=== PATIENT | male | born 1995 | race Caucasian/White ===

== ENCOUNTER 2019-09-19 00:32 | Emergency (ER) | payer OTHER, SELFPAY ==
[2019-09-19 00:33] VITALS: BP 133/89; PULSE 64; RESP 16; TEMP 36.7; O2SAT 98; BMI 27.1
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
[2019-09-19 01:17] VITALS: BP 127/83; PULSE 61; RESP 16; TEMP 36.7; O2SAT 98
--- NOTE | 2019-09-19 01:20 | PC.NURSE ---
pt refused Tetanus shot
== END 2019-09-19 01:19 | disposition home or self-care (01) ==
PROVIDERS: Emergency Provider Emergency Medicine
DX: S09.93XA Unspecified injury of face, initial encounter (principal); S01.511A Laceration without foreign body of lip, initial encounter; W22.8XXA Striking against or struck by other objects, initial encounter; Y92.89 Other specified places as the place of occurrence of the external cause; K02.9 Dental caries, unspecified; F17.210 Nicotine dependence, cigarettes, uncomplicated
CPT/HCPCS: 99281

== ENCOUNTER 2020-03-30 07:22 | Emergency (ER) | payer OTHER, SELFPAY ==
[2020-03-30 07:22] VITALS: BP 162/91; PULSE 79; RESP 18; TEMP 37.1; O2SAT 98; BMI 25.7
--- NOTE | 2020-03-30 08:02 | HMH.EDGENADL ---
ED Disposition Clinical Impression: Dentalgia Disposition: Home, Self-Care Condition on Discharge: Good Additional Instructions: Take ibuprofen with food for pain. Take antibiotic as prescribed. Follow-up with dentistry next week. Return if new or worsening symptoms. Prescriptions: Amoxicillin/Potassium Clav [Augmentin 875-125 Tablet] 1 tab PO Q12H #14 tab Prescription Printed Referrals: PCP,No [Primary Care Provider] - - Critical Care Critical Care Time: No Attestation: On 03/30/20, the high probability of a clinically significant, sudden or life threatening deterioration of the following system(s) required my full and direct attention, intervention and personal management. The time I documented below is in addition to time spent performing reported procedures but includes the following listed in this critical care notation. Medical Decision Making - Medical Records Medical records reviewed: Yes: I reviewed the patient's medical records. - Ho Inquiry Pt receiving controlled substance: No Vital Signs: 03/30/20 07:22 Temperature 98.8 F Temperature Source Oral Pulse Rate [Radial] 79 Respiratory Rate 18 Blood Pressure [Right Arm] 162/91 H Blood Pressure Mean [Right Arm] 114 Blood Pressure Position [Right Arm] Sitting 02 Sat by Pulse Oximetry 98 Oxygen Delivery Method Room Air Orders (Tests/Meds): ED MEDICATIONS Discontinued Medications Generic Name Dose Route Start Last Admin Trade Name Freq PRN Reason Stop Dose Admin Ketorolac Tromethamine 30 mg 03/30/20 07:49 Ketorolac 30mg/Ml Vial IM 03/30/20 07:50 ONCE ONE Medical Decision Narrative: Patient is a 24-year-old male presented with dentalgia. Patient has dental caries. No signs of deeper space infection or any tooth elevation/fluctuance at the base. No drainable abscess. Patient be treated with Augmentin for suspected dental abscess. No allergies to medicines. He has resolution of pain and instructed to continue taking ibuprofen. He does have a dentist he can follow-up with next week. He will immediate return if any difficulty tolerating p.o. fluids, fever/chills, worsening pain. He is able to drink prior to discharge here in the ER. Also urged him to cut back on his smoking and to quit entirely. Assessment: Dentalgia, tooth #2 Tobacco cessation counseling given, less than 8 minutes Disposition: Home with antibiotics with dental follow-up follow-up General Adult HPI - General Chief complaint: PAIN Stated complaint: dental pain Time Seen by Provider: 03/30/20 08:02 Mode of Arrival: Ambulatory Limitations: No Limitations Description of Symptoms (Recalled from ER Triage Doc. by RN): to ed per pvt car with c/o rt upper dental pain woke him up this am approx 5:30. denies nausea, vomiting, fever, chills. cpta tylenol advil at 5:30 - History of Present Illness HPI narrative: Patient 24-year-old male history of tobacco abuse presenting with dental pain. Last night patient had a sharp, constant pain to his right premolar. Still able to tolerate fluids. No fever/chills. He did take an Advil with some relief. This morning he woke up and the pain was worse so he came to the ER but states when he got here the pain is subsided. No other complaints. - Related Data Previous Rx's Medication Instructions Recorded Amoxicillin/Potassium Clav 1 tab PO Q12H #14 tab 03/30/20 [Augmentin 875-125 Tablet] Allergies Allergy/AdvReac Type Severity Reaction Status Date / Time No Known Allergies Allergy Verified 06/29/17 12:18 [facility] History - Hepatitis A Screen Drug use history?: No High risk sexual behaviors?: No History of sexually transmitted infection?: No Currently employed?: No Childcare worker?: No Do you have indoor plumbing?: Yes Do you have electricity?: Yes Attestation statement:: This patient has been screened for Hepatitis A risk factors. Medical History: Denies:: Cancer, D
[2020-03-30 08:18] VITALS: BP 120/61; PULSE 63; RESP 16; TEMP 36.6; O2SAT 98
== END 2020-03-30 08:19 | disposition home or self-care (01) ==
PROVIDERS: Emergency Provider Emergency Medicine
DX: K08.89 Other specified disorders of teeth and supporting structures (principal); K02.9 Dental caries, unspecified; F17.210 Nicotine dependence, cigarettes, uncomplicated
CPT/HCPCS: 99281

== ENCOUNTER 2020-12-05 11:17 | Emergency (ER) | payer SELFPAY ==
[2020-12-05 11:32] VITALS: BP 136/83; PULSE 79; RESP 20; TEMP 36.8; O2SAT 99; BMI 31.1
--- NOTE | 2020-12-05 11:49 | HMH.EDUTC ---
[facility] [place] Disposition Clinical Impression: Bronchitis Sinusitis Qualifiers: Sinusitis location: unspecified location Chronicity: acute Recurrence: non-recurrent Qualified Code(s): J01.90 - Acute sinusitis, unspecified Disposition: Home, Self-Care Condition on Discharge: Good Instructions: DI for Sinusitis, DI for Acute Bronchitis Additional Instructions: Drink plenty of fluids. Take tylenol or ibuprofen for pain or fever. Take the medications as directed. Follow up with your regular doctor. GO TO THE ER FOR ANY WORSENING SYMPTOMS Prescriptions: Amoxicillin/Potassium Clav [Augmentin 875-125 Tablet] 1 tab PO Q12H 10 Days #20 tab [facility]: [facility] predniSONE [Prednisone 20mg Tab] 20 mg PO BID 5 Days #10 tab Transmission Status: [facility] Benzonatate [Tessalon Perle 100mg Cap] 100 mg PO TIDP PRN #30 cap PRN Reason: Cough Transmission Status: Received by [facility] Referrals: Provider,Referral, [Primary Care Provider] - Forms: Work/School Release Time of Disposition: 12:09 Medical Decision Making - Medical Records Medical records reviewed: No: I reviewed the patient's medical records. - Ho Inquiry Pt receiving controlled substance: No Vital Signs: 12/05/20 11:32 12/05/20 12:18 Temperature 98.2 F 98 F Temperature Source Oral Oral Pulse Rate 74 Pulse Rate [Left] 79 Respiratory Rate 20 16 Blood Pressure 132/74 Blood Pressure [Right Arm] 136/83 Blood Pressure Mean [Right Arm] 100 Blood Pressure Source [Right Arm] Automatic Cuff Blood Pressure Position Sitting Blood Pressure Position [Right Arm] Sitting 02 Sat by Pulse Oximetry 99 Oxygen Delivery Method Room Air Room Air [facility] [place] HPI - General Stated complaint: possible upper resp infection Time Seen by Provider: 12/05/20 12:00 Mode of Arrival: Ambulatory Source of Information: Patient Limitations: No Limitations Description of Symptoms (Recalled from Triage Doc. by RN): Pt states he has been congested and has been coughing up green stuff for 2 days. Pt states he will not be getting a nasal swab. Pt glo sob or chest pain. HEENT Symptoms (Recalled from RN notes): No Resp Symptoms (Recalled from RN notes): Yes (cough) Skin Symptoms (Recalled from RN notes): No MS Symptoms (Recalled from RN notes): No Functional Status (Recalled from RN notes): n/a - History of Present Illness Provider Complaint: He states that for the past 2 weeks he has had sinus congestion and sinus drainage. He usually gets a sinus infection this time every year. He denies any fever or chills. He has not been vaccinated against covid-19. He refuses a covid-19 test today. - Related Data Previous Rx's Medication Instructions Recorded Amoxicillin/Potassium Clav 1 tab PO Q12H #14 tab 03/30/20 [Augmentin 875-125 Tablet] Amoxicillin/Potassium Clav 1 tab PO Q12H 10 Days #20 tab 12/05/20 [Augmentin 875-125 Tablet] Benzonatate [Tessalon Perle 100mg 100 mg PO TIDP PRN #30 cap 12/05/20 Cap] predniSONE [Prednisone 20mg 20 mg PO BID 5 Days #10 tab 12/05/20 Tab] Allergies Allergy/AdvReac Type Severity Reaction Status Date / Time No Known Allergies Allergy Verified 06/29/17 12:18 - Worker's Comp Is this a Worker's Comp case?: No [facility] History - Hepatitis A Screen Drug use history?: No High risk sexual behaviors?: No History of sexually transmitted infection?: No Currently employed?: No Childcare worker?: No Do you have indoor plumbing?: Yes Do you have electricity?: Yes Attestation statement:: This patient has been screened for Hepatitis A risk factors. I have reviewed the patient's past medical history: Yes Medical History: Denies:: Cancer, Diabetes Mellitus Type 1, Diabetes Mellitus Type 2, MRSA Other Medical History: Reports: Other (vsd) Other Surgeries: Yes: No Previous Surgery Amputation: No - Social History S
[2020-12-05 12:18] VITALS: BP 132/74; PULSE 74; RESP 16; TEMP 36.6; O2SAT 98
== END 2020-12-05 12:19 | disposition home or self-care (01) ==
PROVIDERS: Emergency Provider Nurse Practitioner Family
DX: J20.9 Acute bronchitis, unspecified (principal); J01.90 Acute sinusitis, unspecified; F17.210 Nicotine dependence, cigarettes, uncomplicated
CPT/HCPCS: 99202; G0463

== ENCOUNTER 2022-05-13 07:00 | Emergency (ER) | payer SELFPAY ==
[2022-05-13 07:00] VITALS: BP 126/85; PULSE 68; RESP 18; TEMP 36.5; O2SAT 100; BMI 31.1
[2022-05-13 07:07] VITALS: PULSE 65; RESP 17; O2SAT 99
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
--- NOTE | 2022-05-13 07:19 | PC.NURSE ---
DR ARTIS AT BEDSIDE
--- NOTE | 2022-05-13 07:19 | PC.NURSE ---
FIDEL DE SANTIAGO at
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
--- NOTE | 2022-05-13 07:28 | PC.NURSE ---
PT TO XR
--- NOTE | 2022-05-13 07:33 | PC.NURSE ---
PT RETURNED FROM XR
--- NOTE | 2022-05-13 07:49 | PC.NURSE ---
DR ARTIS AT BEDSIDE TO UPDATE PT
[2022-05-13 07:55] VITALS: BP 128/85; PULSE 65; RESP 18; TEMP 36.7; O2SAT 98
== END 2022-05-13 07:55 | disposition home or self-care (01) ==
PROVIDERS: Emergency Provider Emergency Medicine
DX: S20.211A Contusion of right front wall of thorax, initial encounter (principal); V48.2XXA Person on outside of car injured in noncollision transport accident in nontraffic accident, initial encounter; Z87.891 Personal history of nicotine dependence
CPT/HCPCS: 71101; 99283

== ENCOUNTER 2022-06-23 11:38 | Emergency (ER) | payer SELFPAY ==
[2022-06-23 11:45] VITALS: BP 122/77; PULSE 71; RESP 20; TEMP 36.8; O2SAT 97; BMI 31.8
--- NOTE | 2022-06-23 11:54 | EXP.UTC ---
Discharge Plan Disposition Patient Disposition: Home, Self-Care Condition: Good Prescriptions Prescriptions: New ibuprofen [IBU] 800 mg tablet 800 mg PO Q8HP PRN (Reason: Moderate Pain) Qty: 30 0RF Referrals Follow up/Referrals: Provider,Referral, [Primary Care Provider] - See instructions Activity Restrictions/Add. Instructions Additional Instructions/Restrictions: Rest the extremity, Elevate the extremity as tolerated while you are resting. Take ibuprofen for pain. I sent in a prescription to your pharmacy. Follow up with Dr. López (orthopedics). Sometimes there can be fractures that don't show up well on the first set of x-rays. So, you should follow up if you continue to have symptoms. I put in a referral but you need to call his office and schedule an appointment. Follow up with your regular doctor. GO TO THE ER FOR ANY WORSENING SYMPTOMS Clinical Impressions Clinical Impression: Right wrist tendinitis Instructions Patient Instructions: DI for Wrist Pain Discharge ED Provider: Go Aquino [facility] General Stated complaint: R wrist pain Time Seen by Provider: 06/23/22 11:54 History of Present Illness Provider Complaint: He states that for the past 2 weeks he has had right wrist pain with movement. He denies any known injury. He has been working very hard with his hands recently and thinks he may have a tendonitis. Related Data Previous Rx's Medication Instructions Recorded ibuprofen 800 mg tablet (IBU) 800 mg PO Q8HP PRN Moderate Pain 06/23/22 #30 tabs Allergies Allergy/AdvReac Type Severity Reaction Status Date / Time No Known Allergies Allergy Verified 06/23/22 12:02 [facility] Disclaimer: The information contained in this section may have been updated after the patient was seen, as this information can be updated by other users. Social History Smoking Status: Former smoker alcohol intake: never substance use type: denies use current occupational status: employed Travel in the last 8 weeks: None household members: family housing: house ROS Obtained: Yes All systems reviewed & no additional complaints except as documented Constitutional Constitutional: Denies chills and Denies fever(s) Eyes Eyes: Denies eye discharge ENT Ears, Nose, Mouth, and Throat: Denies dizziness, Denies otalgia and Denies sore throat Cardiovascular Cardiovascular: Denies chest pain Respiratory Respiratory: Denies shortness of breath, Denies chest congestion, Denies cough, Denies stridor and Denies wheezing Gastrointestinal Gastrointestingal: Denies nausea or vomiting Musculoskeletal Musculoskeletal: Reports as per HPI Integumentary/Breasts Skin/Breast: Denies rash Neurologic Neurologic: Denies dizziness and Denies paresthesias Allergic/Immunologic Allergic/Immunologic: Denies wheezing Physical Exam General General appearance: alert and in no apparent distress Head Head exam: atraumatic, normocephalic and normal inspection Eye Eye exam: Present normal appearance, PERRL and EOMI ENT ENT exam: Present normal exam, normal oropharynx, mucous membranes moist, TM's normal bilaterally and normal external ear exam Neck Neck exam: Present normal inspection, full ROM and trachea midline; Absent meningismus or lymphadenopathy Chest Chest inspection: Present normal inspection and symmetric chest wall rise; Absent tenderness Respiratory Respiratory exam: Present normal lung sounds bilaterally; Absent respiratory distress Cardiovascular Cardiovascular exam: Present regular rate and normal rhythm; Absent JVD Abdominal Exam Abdominal exam: Present soft and normal bowel sounds; Absent distention, tenderness or guarding Extremities Exam Extremities exam: Present normal capillary refill; Absent calf tenderness Expanded Upper Extremity Exam Right: Elbow exam: Present normal inspection and full ROM; Absent tenderness
--- NOTE | 2022-06-23 11:57 | XR_ITS ---
FINAL REPORT CLINICAL HISTORY: pain FINDINGS: RIGHT WRIST Three views demonstrate no acute fracture or dislocation. The visualized joint spaces are normally aligned. The joint spaces are intact. The soft tissues are unremarkable. IMPRESSION: No acute bony abnormality. Reviewed, Interpreted and Dictated by David Casiano III, MD Transcribed by Yanely Lai Authenticated and [facility]
--- NOTE | 2022-06-23 11:57 | XR_ITS ---
FINAL REPORT CLINICAL HISTORY: pain FINDINGS: RIGHT HAND Three views demonstrate no acute fracture. There is no dislocation. The visualized joint spaces are normally aligned. The joint spaces are preserved. The soft tissues are unremarkable. IMPRESSION: No acute bony abnormality. Reviewed, Interpreted and Dictated by David Casiano III, MD Transcribed by Yanely Lai Authenticated and [facility]
[2022-06-23 13:05] VITALS: BP 122/77; PULSE 71; RESP 20; TEMP 36.8; O2SAT 97
== END 2022-06-23 13:05 | disposition home or self-care (01) ==
PROVIDERS: Emergency Provider Nurse Practitioner Family
DX: M67.833 Other specified disorders of tendon, right wrist (principal); X58.XXXA Exposure to other specified factors, initial encounter; Z87.891 Personal history of nicotine dependence
CPT/HCPCS: 73110; 73130; 99212; 99214; G0463

== ENCOUNTER 2022-08-04 23:03 | Emergency (ER) | payer SELFPAY ==
[2022-08-05 00:15] VITALS: BP 0/0; PULSE 0; RESP 0; TEMP -17.7; TEMP 0
== END 2022-08-05 00:22 | disposition left against medical advice (07) ==
LOC: ER 08-05 00:16
PROVIDERS: Emergency Provider Emergency Medicine
DX: Z53.21 Procedure and treatment not carried out due to patient leaving prior to being seen by health care provider (principal)
CPT/HCPCS: 99211

== ENCOUNTER 2022-09-03 20:57 | Emergency (ER) | payer SELFPAY ==
[2022-09-03 20:58] VITALS: BP 137/88; PULSE 95; RESP 20; TEMP 37.2; O2SAT 98; BMI 31.1
--- NOTE | 2022-09-03 21:26 | PC.NURSE ---
help dr. mccoy in room while he was taking care of pt eye
--- NOTE | 2022-09-03 21:27 | HMH.EDEYEP ---
Discharge Plan Disposition Patient Disposition: Home, Self-Care Chief Complaint: Eye Problems Prescriptions Prescriptions: No Action ibuprofen [IBU] 800 mg tablet 800 mg PO Q8HP PRN (Reason: Moderate Pain) Qty: 30 0RF Referrals Follow up/Referrals: Provider,Referral, MD [Primary Care Provider] - See instructions Clinical Impressions Clinical Impression: Acute foreign body of right cornea, Corneal abrasion Instructions Patient Instructions: DI for Foreign Body in the Eye Discharge ED Provider: Gavin (ED)Isauro Eye Problem HPI General Chief complaint: Eye Problems Stated complaint: poss something in right eye Time Seen by Provider: 09/03/22 21:15 Mode of Arrival: Ambulatory Source of Information: Patient and Medical Record Limitations: No Limitations Description of Symptoms (Recalled from ER Triage Doc. by RN): Pt states he was working on vehicle today and feels like something is in his right eye. There is visible debris in right eye. Pt denies any visual changes or pain just irritation. History of Present Illness HPI Narrative: fb rt eye today no other c/o -declined tetanus chief complaint: foreign body Onset (ago): hour(s) Location: right eye Eye Symptoms: foreign body sensation Place: home Mechanism: occurred while hammering/grinding Severity: moderate Associated symptoms: none Treatments Prior to Arrival: none Related Data Patient tetanus UTD: No Previous Rx's Medication Instructions Recorded ibuprofen 800 mg tablet (IBU) 800 mg PO Q8HP PRN Moderate Pain 06/23/22 #30 tabs Allergies Allergy/AdvReac Type Severity Reaction Status Date / Time No Known Allergies Allergy Verified 06/23/22 12:02 [facility] [place] Disclaimer: The information contained in this section may have been updated after the patient was seen, as this information can be updated by other users. Social History Smoking Status: Current every day smoker tobacco type: cigarettes packs per day: 1 alcohol intake: never substance use type: denies use current occupational status: employed Travel in the last 8 weeks: None household members: family housing: house ROS Obtained: Yes All systems reviewed & no additional complaints except as documented Physical Exam General General appearance: alert Head Head exam: normocephalic Eye Eye exam: Present PERRL, EOMI and other (fb rt eye at 8 oclock and removed with qtip with residual sl abrasion ) ENT ENT exam: Present normal oropharynx Neck Neck exam: Present trachea midline Respiratory Respiratory exam: Absent respiratory distress Cardiovascular Cardiovascular exam: Present regular rate Abdominal Exam Abdominal exam: Present soft Extremities Exam Extremities exam: Present full ROM Neurological Exam Neurological exam: Present alert, oriented X3 and CN II-XII intact; Absent motor sensory deficit Psychiatric Psychiatric exam: Present normal affect Skin Skin exam: Absent rash Medical Decision Making Medical Records Medical records reviewed: Yes I reviewed the patient's medical records. Ho Inquiry Pt receiving controlled substance: No Vital Signs: 09/03/22 20:58 Temperature 98.9 F Temperature Source Oral Pulse Rate [Right] 95 H Respiratory Rate 20 Blood Pressure [Right Arm] 137/88 Blood Pressure Mean [Right Arm] 104 Blood Pressure Source [Right Arm] Automatic Cuff Blood Pressure Position [Right Arm] Sitting 02 Sat by Pulse Oximetry 98 Oxygen Delivery Method Room Air Medical Decision Narrative: removed fb and will refer to eye center for follow up Procedures Eye Exam/FB Removal Location: eye (R) Topical anesthetic used: tetracaine Fluorescein Stick(s) used: Yes Time Out performed: Yes Procedure performed under: direct visualization with magnification Foreign body: metal Evidence of corneal penetration: No Technique: cotton tip swab Post-procedure medication: ophthalmic antibi
[2022-09-03 21:31] VITALS: BP 139/92; PULSE 83; O2SAT 99
[2022-09-03 21:45] VITALS: BP 114/93; PULSE 74; RESP 20; TEMP 37.2; O2SAT 100
== END 2022-09-03 21:49 | disposition home or self-care (01) ==
PROVIDERS: Emergency Provider Emergency Medicine
DX: S05.01XA Injury of conjunctiva and corneal abrasion without foreign body, right eye, initial encounter (principal); F17.210 Nicotine dependence, cigarettes, uncomplicated; W31.1XXA Contact with metalworking machines, initial encounter
CPT/HCPCS: 65220; 99283

== ENCOUNTER 2022-11-04 17:28 | Emergency (ER) | payer SELFPAY ==
[2022-11-04 17:30] VITALS: BP 147/85; PULSE 80; RESP 20; TEMP 37.2; O2SAT 95; BMI 33.0
[2022-11-04 17:48] VITALS: BP 147/85; PULSE 80; RESP 20; TEMP 37.2; O2SAT 95
--- NOTE | 2022-11-04 18:34 | EXP.UTC ---
Discharge Plan Disposition Patient Disposition: Home, Self-Care Condition: Good Prescriptions Prescriptions: No Action ibuprofen [IBU] 800 mg tablet 800 mg PO Q8HP PRN (Reason: Moderate Pain) Qty: 30 0RF Referrals Follow up/Referrals: Provider,Referral, MD [Primary Care Provider] - See instructions Activity Restrictions/Add. Instructions Additional Instructions/Restrictions: Prrescribed Augmentin Keep wound clean and dry Clinical Impressions Clinical Impression: Dog bite Qualifiers: Encounter type: initial encounter Qualified Code(s): W54.0XXA - Bitten by dog, initial encounter Instructions Patient Instructions: DI for Dog Bite Discharge ED Provider: Beba Wall [facility] [place] HPI General Stated complaint: AO08/@1300 dog bite RT leg Mode of Arrival: Ambulatory Source of Information: Patient Limitations: No Limitations Time Seen by Provider: 11/04/22 17:30 Description of Symptoms (Recalled from Triage Doc. by RN): PATIENT C/O DOG BITE TO RIGHT ANKLE TODAY HEENT Symptoms (Recalled from RN notes): No Resp Symptoms (Recalled from RN notes): No Skin Symptoms (Recalled from RN notes): Yes MS Symptoms (Recalled from RN notes): No Functional Status (Recalled from RN notes): WNL History of Present Illness Provider Complaint: Patient states that he stepped out of his house and there was a strange dog around his garbage and he thinks he startled it and it bite him on the right upper leg and his right ankle State that one on his upper leg is a scratch but was worried about the one on his ankle Related Data Previous Rx's Medication Instructions Recorded ibuprofen 800 mg tablet (IBU) 800 mg PO Q8HP PRN Moderate Pain 06/23/22 #30 tabs Allergies Allergy/AdvReac Type Severity Reaction Status Date / Time No Known Allergies Allergy Verified 06/23/22 12:02 Worker's Comp Is this a Worker's Comp case?: No [facility] Disclaimer: The information contained in this section may have been updated after the patient was seen, as this information can be updated by other users. Social History Smoking Status: Current every day smoker tobacco type: cigarettes packs per day: 1 alcohol intake: never substance use type: denies use current occupational status: employed Travel in the last 8 weeks: None household members: family housing: house ROS Obtained: Yes All systems reviewed & no additional complaints except as documented and Yes Systems reviewed as appropriate & no additional complaints except as documented Constitutional Constitutional: Reports system reviewed and no additional complaints, except as documented, Reports as per HPI, Denies body ache, Denies chills, Denies fever(s) and Denies headache(s) ENT Ears, Nose, Mouth, and Throat: Reports system reviewed and no additional complaints, except as documented, Reports as per HPI and Denies headache(s) Cardiovascular Cardiovascular: Reports system reviewed and no additional complaints, except as documented and Reports as per HPI Respiratory Respiratory: Reports system reviewed and no additional complaints, except as documented and Reports as per HPI Integumentary/Breasts Skin/Breast: Reports system reviewed and no additional complaints, except as documented and Reports as per HPI Comments: dog bite on right upper leg and right ankle Neurologic Neurologic: Denies headache(s) Physical Exam General General appearance: alert and in no apparent distress Respiratory Respiratory exam: Present normal lung sounds bilaterally; Absent respiratory distress or wheezes Cardiovascular Cardiovascular exam: Present regular rate, normal rhythm and normal heart sounds Expanded Lower Extremity Exam Right: Leg image: 1. small abrasion noted 2. abrasion noted no active bleeding with superficial scratch mora noted Neurological Exam Neurological exam: Present alert, oriented X3 and normal gait Medical Decis
== END 2022-11-04 17:50 | disposition home or self-care (01) ==
PROVIDERS: Emergency Provider Nurse Practitioner
DX: S91.051A Open bite, right ankle, initial encounter (principal); F17.210 Nicotine dependence, cigarettes, uncomplicated; W54.0XXA Bitten by dog, initial encounter
CPT/HCPCS: 99212; 99214; G0463

== ENCOUNTER 2023-02-21 14:39 | Emergency (ER) | payer SELFPAY ==
[2023-02-21 14:45] VITALS: BP 162/101; PULSE 72; RESP 20; TEMP 36.6; O2SAT 98; BMI 31.1
--- NOTE | 2023-02-21 15:16 | EXP.UTC ---
Discharge Plan Disposition Patient Disposition: Home, Self-Care Condition: Good Prescriptions Prescriptions: New cephalexin 500 mg capsule 500 mg PO QID Qty: 40 0RF silver sulfadiazine [Silvadene] 1 % cream 1 applic topical BID 10 Days Qty: 50 0RF Rx Instructions: apply a 1.5 mm thickness ibuprofen [IBU] 800 mg tablet 800 mg PO Q8HP PRN (Reason: Moderate Pain) Qty: 30 0RF Referrals Follow up/Referrals: Provider,Referral, MD [Primary Care Provider] - See instructions Activity Restrictions/Add. Instructions Additional Instructions/Restrictions: Keep the wound clean and dry. Watch the wound for signs of infection, such as redness, swelling, drainage, fever. etc. Take ibuprofen for pain. I sent in a prescription for ibuprofen 800 mg. Follow up with your regular doctor. Mcgowan of the hand may need to be followed up on at a Burn Center. The closest burn centers are at [facility] [ ] and [facility] [ . Please follow up for additional problems. GO TO THE ER FOR ANY WORSENING SYMPTOMS Clinical Impressions Clinical Impression: Second degree burn of back of left hand Instructions Patient Instructions: DI for Mcgowan, Mcgowan, Silver Sulfadiazine, Cephalexin Discharge ED Provider: Go Aquino [facility] General Stated complaint: Burn on left hand Mode of Arrival: Ambulatory Source of Information: Patient Limitations: No Limitations Time Seen by Provider: 02/21/23 15:15 Description of Symptoms (Recalled from Triage Doc. by RN): PATIENT C/O BURN TO LEFT HAND UP TO ELBOW TODAY WHILE WORKING ON A TIRE HEENT Symptoms (Recalled from RN notes): No Resp Symptoms (Recalled from RN notes): No Skin Symptoms (Recalled from RN notes): Yes MS Symptoms (Recalled from RN notes): No Functional Status (Recalled from RN notes): WNL History of Present Illness Provider Complaint: He states that he was heating something to change a truck tire today with he burnt the back of his left hand. He is having redness and burning of that area now. He denies any other injury. His tetanus immunization is up to date. Related Data Previous Rx's Medication Instructions Recorded cephalexin 500 mg capsule 500 mg PO QID #40 caps 02/21/23 ibuprofen 800 mg tablet (IBU) 800 mg PO Q8HP PRN Moderate Pain 02/21/23 #30 tabs silver sulfadiazine 1 % topical 1 applic topical BID 10 days #50 02/21/23 cream (Silvadene) grams Allergies Allergy/AdvReac Type Severity Reaction Status Date / Time No Known Allergies Allergy Verified 06/23/22 12:02 Worker's Comp Is this a Worker's Comp case?: No PFSH PFS Disclaimer: The information contained in this section may have been updated after the patient was seen, as this information can be updated by other users. Social History Smoking Status: Current every day smoker tobacco type: cigarettes packs per day: 1 alcohol intake: never substance use type: denies use current occupational status: employed Travel in the last 8 weeks: None household members: family housing: house ROS Obtained: Yes All systems reviewed & no additional complaints except as documented Constitutional Constitutional: Denies chills and Denies fever(s) Eyes Eyes: Denies eye discharge ENT Ears, Nose, Mouth, and Throat: Denies dizziness, Denies otalgia and Denies sore throat Cardiovascular Cardiovascular: Denies chest pain Respiratory Respiratory: Denies shortness of breath, Denies chest congestion, Denies cough, Denies stridor and Denies wheezing Gastrointestinal Gastrointestingal: Denies nausea or vomiting Musculoskeletal Musculoskeletal: Reports system reviewed and no additional complaints, except as documented and Denies arthralgias Integumentary/Breasts Skin/Breast: Reports as per HPI and Reports redness Neurologic Neurologic: Denies dizziness and Denies paresthesias Allergic/Immunol
[2023-02-21 15:58] VITALS: BP 162/101; PULSE 72; RESP 20; TEMP 36.6; O2SAT 98
== END 2023-02-21 16:05 | disposition home or self-care (01) ==
PROVIDERS: Emergency Provider Nurse Practitioner Family
DX: T23.262A Burn of second degree of back of left hand, initial encounter (principal); F17.210 Nicotine dependence, cigarettes, uncomplicated; X19.XXXA Contact with other heat and hot substances, initial encounter
CPT/HCPCS: 99212; 99214; G0463